=== PATIENT | female | born 1940 | race Caucasian/White ===

== ENCOUNTER → 2023-02-10 | Outpatient (CLI) | payer MEDICARE ==
[~2023-02-10] MED LIST: ACET-66 PO; ESCI20TA38 PO; LOSA25TA41 PO; METO-391 PO; MULT-1203 PO; PREVAGEN PO; SIMV-46 PO
== END | disposition home or self-care (01) ==
LOC: SHCH 10:38
PROVIDERS: ATTEND Internal Medicine Cardiovascular Disease
DX: I87.2 Venous insufficiency (chronic) (peripheral) (principal)
CPT/HCPCS: 93970

== ENCOUNTER → 2023-06-23 | Outpatient (CLI) | payer MEDICARE ==
[~2023-06-23] MED LIST changes: +ESCI-8 PO; +FURO20TA4 PO; +ROSU20TA73 PO
[2023-06-23 15:30] LABS: BASOPHILS # (AUTO) 0.05 K/uL (0.00-0.20); BASOPHILS % (AUTO) 0.6 % (0.0-5.0); EOSINOPHILS # (AUTO) 0.14 K/uL (0.00-0.70); EOSINOPHILS % (AUTO) 1.6 % (0.0-8.0); HEMATOCRIT 43.8 % (36-48); IMMATURE GRANULOCYTE ABSOLUTE 0.04 K/uL (0-1); LYMPHOCYTES # (AUTO) 1.3 K/uL (1.0-4.8); LYMPHOCYTES % (AUTO) 14.7 % (21.0-51.0); MEAN CORPUSCULAR HEMOGLOBIN 29.5 pg (27.0-33.0); MEAN CORPUSCULAR HGB CONC 31.3 g/dL (32.0-36.0); MEAN CORPUSCULAR VOLUME 94.4 fL (79-99); MONOCYTES # (AUTO) 0.6 K/uL (0.1-1.0); MONOCYTES % (AUTO) 6.7 % (3.0-13.0); NEUTROPHILS # (AUTO) 6.8 K/uL (1.8-7.7); PLATELET COUNT (AUTO) 230 K/uL (130-400); RED BLOOD CELL COUNT(AUTO) 4.64 MIL/uL (4.00-5.50); RED CELL DISTRIBUTION WIDTH 13.5 % (11.0-15.5)
[2023-06-23 15:42] LABS: INR < 0.93 (0.85-1.15); PROTHROMBIN TIME 10.6 SEC (9.6-11.6)
[2023-06-23 15:43] LABS: PARTIAL THROMBOPLASTIN TIME 26.8 SEC (26.3-35.5)
[2023-06-23 15:44] LABS: ALBUMIN 3.6 g/dL (3.5-5.0); BILIRUBIN,TOTAL 0.4 mg/dL (0.2-1.0); CREATININE 0.8 mg/dL (0.5-1.5); POTASSIUM 3.9 mmol/L (3.5-5.1); TOTAL PROTEIN, SERUM 7.1 g/dL (6.0-8.3)
== END | disposition home or self-care (01) ==
LOC: LAB 14:07
PROVIDERS: ATTEND Internal Medicine Cardiovascular Disease
DX: I87.2 Venous insufficiency (chronic) (peripheral) (principal); I87.1 Compression of vein; M79.89 Other specified soft tissue disorders
CPT/HCPCS: 36415; 80053; 85025; 85610; 85730

== ENCOUNTER 2023-06-27 12:42 | Observation (INO) | payer MEDICARE ==
[~2023-06-27] VITALS: Ht 147.3 cm; Wt 79.6 kg
[~2023-06-27 12:42] MED LIST changes: -ESCI-8 PO; -FURO20TA4 PO; -ROSU20TA73 PO
[2023-06-27] MEDS ORDERED: 0.9%NACL 1000ML 1,000 ML IV ONE (13:00)
[2023-06-27 13:25] LABS: BASOPHILS # (AUTO) 0.05 K/uL (0.00-0.20); BASOPHILS % (AUTO) 0.5 % (0.0-5.0); EOSINOPHILS # (AUTO) 0.09 K/uL (0.00-0.70); EOSINOPHILS % (AUTO) 0.9 % (0.0-8.0); HEMATOCRIT 34.5 % (36-48); IMMATURE GRANULOCYTE ABSOLUTE 0.05 K/uL (0-1); LYMPHOCYTES % (AUTO) 9.9 % (21.0-51.0); MEAN CORPUSCULAR HEMOGLOBIN 29.9 pg (27.0-33.0); MEAN CORPUSCULAR HGB CONC 32.2 g/dL (32.0-36.0); MONOCYTES # (AUTO) 0.6 K/uL (0.1-1.0); MONOCYTES % (AUTO) 5.2 % (3.0-13.0); NEUTROPHILS # (AUTO) 8.8 K/uL (1.8-7.7); PLATELET COUNT (AUTO) 182 K/uL (130-400); RED BLOOD CELL COUNT(AUTO) 3.71 MIL/uL (4.00-5.50); RED CELL DISTRIBUTION WIDTH 13.4 % (11.0-15.5); WHITE BLOOD COUNT (AUTO) 10.5 K/uL (4.8-10.8)
[2023-06-27 13:37] LABS: CREATININE 0.7 mg/dL (0.5-1.5); POTASSIUM 4.1 mmol/L (3.5-5.1)
[2023-06-27 13:51] LABS: MAGNESIUM 2.1 mg/dL (1.80-2.40); THYROID STIMULATING HORMONE 1.71 uIU/mL (0.36-3.74)
[2023-06-27] MEDS ORDERED: GLUCAGON 1MG KIT 1 MG ML IM PRN (15:00)
[2023-06-27] MEDS ORDERED: DiphenhydrAMINE HCL 50 MG/ML VIAL IV PRN (15:00)
[2023-06-27] MEDS ORDERED: POTASSIUM CHLORIDE 10% ELIXIR 20 MEQ/15 ML UDCUP PO PRN (15:00)
[2023-06-27] MEDS ORDERED: DOCUSATE SODIUM 100 MG CAP PO PRN (15:00)
[2023-06-27] MEDS ORDERED: POTASSIUM CHLORIDE 20MEQ/100ML 100 ML IV PRN ×2 (15:00)
[2023-06-27] MEDS ORDERED: LACTULOSE 20 GM/30 ML UDCUP PO PRN (15:00)
[2023-06-27] MEDS ORDERED: ACETAMINOPHEN 325 MG TAB PO PRN ×2 (15:00)
[2023-06-27] MEDS ORDERED: ALPRAZOLAM 0.5 MG TABLET PO PRN (15:00)
[2023-06-27] MEDS ORDERED: GUAIFENESIN-DM 200/20 MG 10 ML PO PRN (15:00)
[2023-06-27] MEDS ORDERED: MAGNESIUM 2GM PREMIX 50ML 50 ML IV PRN (15:00)
[2023-06-27] MEDS ORDERED: BENZOCAINE/MENTH/CETYLPYRD CL 1 EACH LOZENGE MM PRN (15:00)
[2023-06-27] MEDS ORDERED: KCL 20 MEQ ERTAB PO PRN (15:00)
[2023-06-27] MEDS ORDERED: DEXTROSE 50%-WATER 50 ML DISP.SYRIN IV PRN (15:00)
[2023-06-27] MEDS ORDERED: POLYETHYLENE GLYCOL 3350 17 GM POWD.PACK PO PRN (15:00)
[2023-06-27] MEDS ORDERED: DIPHENHYDRAMINE HCL 25 MG CAPSULE PO PRN (15:00)
[2023-06-27] MEDS ORDERED: ONDANSETRON 4MG INJ IV PRN (15:00)
[2023-06-27 15:09] LABS: INR 0.97 (0.85-1.15); PROTHROMBIN TIME 11.3 SEC (9.6-11.6)
[2023-06-27 15:10] LABS: PARTIAL THROMBOPLASTIN TIME 55.5 SEC (26.3-35.5)
[2023-06-27] MEDS ORDERED: ESCI-8 PO (15:58)
[2023-06-27] MEDS ORDERED: FURO20TA4 PO (15:58)
[2023-06-27] MEDS ORDERED: METO-391 PO (15:58)
[2023-06-27] MEDS ORDERED: ROSU20TA73 PO (15:58)
[2023-06-27] MEDS: INSULIN HUMULIN R 100 UNIT/ML 3ML SQ SCH ×2 (16:30→20:40)
[2023-06-27 20:10] VITALS: O2SAT 97
[2023-06-27 20:15] VITALS: BP 138/66; PULSE 73; RESP 18; O2SAT 98
[2023-06-27] MEDS: FAMOTIDINE 20MG VIAL IV SCH (21:24)
[2023-06-27 21:34] LABS: HEMATOCRIT 31.6 % (36-48)
[2023-06-27 23:00] VITALS: BP 130/68; PULSE 70; RESP 18
[2023-06-28] VITALS (14 sets, daily range): BP systolic 119–150; BP diastolic 51–96; PULSE 80–92; RESP 16–20; O2SAT 96–97
[2023-06-28 04:13] LABS: BASOPHILS # (AUTO) 0.04 K/uL (0.00-0.20); BASOPHILS % (AUTO) 0.6 % (0.0-5.0); EOSINOPHILS # (AUTO) 0.07 K/uL (0.00-0.70); HEMATOCRIT 31.7 % (36-48); IMMATURE GRANULOCYTE ABSOLUTE 0.02 K/uL (0-1); LYMPHOCYTES # (AUTO) 1.4 K/uL (1.0-4.8); LYMPHOCYTES % (AUTO) 19.2 % (21.0-51.0); MEAN CORPUSCULAR HEMOGLOBIN 29.6 pg (27.0-33.0); MEAN CORPUSCULAR HGB CONC 30.9 g/dL (32.0-36.0); MEAN CORPUSCULAR VOLUME 95.8 fL (79-99); MONOCYTES # (AUTO) 0.7 K/uL (0.1-1.0); NEUTROPHILS # (AUTO) 4.9 K/uL (1.8-7.7); NEUTROPHILS % (AUTO) 68.9 % (40.0-77.0); PLATELET COUNT (AUTO) 146 K/uL (130-400); RED BLOOD CELL COUNT(AUTO) 3.31 MIL/uL (4.00-5.50); RED CELL DISTRIBUTION WIDTH 13.5 % (11.0-15.5); WHITE BLOOD COUNT (AUTO) 7.1 K/uL (4.8-10.8)
[2023-06-28 04:21] LABS: ALBUMIN 2.9 g/dL (3.5-5.0); BILIRUBIN,TOTAL 0.4 mg/dL (0.2-1.0); CREATININE 0.7 mg/dL (0.5-1.5); POTASSIUM 3.8 mmol/L (3.5-5.1); TOTAL PROTEIN, SERUM 5.7 g/dL (6.0-8.3)
[2023-06-28] MEDS: INSULIN HUMULIN R 100 UNIT/ML 3ML SQ SCH ×4 (05:57→20:01)
[2023-06-28] MEDS: FAMOTIDINE 20MG VIAL IV SCH ×2 (08:17→20:02)
[2023-06-28 09:40] LABS: HEMATOCRIT 29.6 % (36-48)
[2023-06-28] MEDS ORDERED: THROMBIN-JMI 5000 UNIT/VIAL TP ONE (11:22)
[2023-06-28 14:57] LABS: HEMATOCRIT 29.8 % (36-48)
[2023-06-29 00:10] VITALS: BP 141/68; PULSE 90; RESP 20
[2023-06-29 04:00] VITALS: BP 117/86; PULSE 98; RESP 21
[2023-06-29 05:01] LABS: BASOPHILS # (AUTO) 0.04 K/uL (0.00-0.20); BASOPHILS % (AUTO) 0.6 % (0.0-5.0); EOSINOPHILS # (AUTO) 0.11 K/uL (0.00-0.70); EOSINOPHILS % (AUTO) 1.6 % (0.0-8.0); HEMATOCRIT 28.2 % (36-48); IMMATURE GRANULOCYTE ABSOLUTE 0.03 K/uL (0-1); LYMPHOCYTES # (AUTO) 1.4 K/uL (1.0-4.8); LYMPHOCYTES % (AUTO) 19.4 % (21.0-51.0); MEAN CORPUSCULAR HGB CONC 31.6 g/dL (32.0-36.0); MEAN CORPUSCULAR VOLUME 94.9 fL (79-99); MONOCYTES # (AUTO) 0.8 K/uL (0.1-1.0); MONOCYTES % (AUTO) 11.3 % (3.0-13.0); NEUTROPHILS # (AUTO) 4.7 K/uL (1.8-7.7); NEUTROPHILS % (AUTO) 66.7 % (40.0-77.0); PLATELET COUNT (AUTO) 129 K/uL (130-400); RED BLOOD CELL COUNT(AUTO) 2.97 MIL/uL (4.00-5.50); RED CELL DISTRIBUTION WIDTH 13.7 % (11.0-15.5)
[2023-06-29 05:10] LABS: HEMOGLOBIN A1C 6.1 % (4.0-6.0)
[2023-06-29 05:16] LABS: B-TYPE NATRIURETIC PEPTIDE 50 pg/mL (0-100)
[2023-06-29 05:22] LABS: ALBUMIN 2.7 g/dL (3.5-5.0); BILIRUBIN,TOTAL 0.4 mg/dL (0.2-1.0); CREATININE 0.8 mg/dL (0.5-1.5); MAGNESIUM 2.1 mg/dL (1.80-2.40); POTASSIUM 3.7 mmol/L (3.5-5.1); THYROID STIMULATING HORMONE 2.71 uIU/mL (0.36-3.74); TOTAL PROTEIN, SERUM 5.6 g/dL (6.0-8.3)
[2023-06-29] MEDS: INSULIN HUMULIN R 100 UNIT/ML 3ML SQ SCH ×2 (05:43→11:30)
[2023-06-29 07:45] VITALS: BP 143/68; PULSE 86; RESP 16
[2023-06-29] MEDS: FAMOTIDINE 20MG VIAL IV SCH (07:56)
[2023-06-29 09:00] VITALS: O2SAT 96
== END 2023-06-29 14:36 | disposition home or self-care (01) ==
LOC: EDH 12:42 → EDHIP 14:36 → 2DH 20:00
PROVIDERS: ADMIT Internal Medicine Pulmonary Disease; ATTEND Internal Medicine Pulmonary Disease
DX: I72.9 Aneurysm of unspecified site (principal); D62 Acute posthemorrhagic anemia; I11.0 Hypertensive heart disease with heart failure; I50.32 Chronic diastolic (congestive) heart failure; G47.33 Obstructive sleep apnea (adult) (pediatric); S30.1XXA Contusion of abdominal wall, initial encounter; E66.9 Obesity, unspecified; E78.00 Pure hypercholesterolemia, unspecified; F32.A Depression, unspecified; I25.10 Atherosclerotic heart disease of native coronary artery without angina pectoris; I72.8 Aneurysm of other specified arteries; M54.9 Dorsalgia, unspecified; J42 Unspecified chronic bronchitis; F41.9 Anxiety disorder, unspecified; G89.29 Other chronic pain; Z68.38 Body mass index [BMI] 38.0-38.9, adult; Z79.4 Long term (current) use of insulin; Z79.899 Other long term (current) drug therapy; Z98.890 Other specified postprocedural states; X58.XXXA Exposure to other specified factors, initial encounter; Y92.89 Other specified places as the place of occurrence of the external cause; Y93.89 Activity, other specified
CPT/HCPCS: 85014 ×3; 85018 ×3; 96374; 96361; 99285; 84443 ×2; 83735 ×2; 84484; 80048; 85025 ×3; 85610; 85730; 82948 ×6; 83605 ×2; 36415 ×3; 76882 ×2; 93005; 96376 ×2; 80053 ×2; 82140; 36002; 97161; 97116 ×2; 97530 ×4; 83036; 82550; 83880; 84145; G0378 ×46; J3490 ×5; J7030

== ENCOUNTER → 2023-10-03 | Outpatient (CLI) | payer MEDICARE ==
[~2023-10-03] MED LIST changes: +ESCI-8 PO; -ESCI20TA38 PO; +FURO20TA4 PO; +ROSU20TA73 PO
== END | disposition home or self-care (01) ==
LOC: LAB 13:51
PROVIDERS: ATTEND Internal Medicine Cardiovascular Disease
DX: R06.02 Shortness of breath (principal)
CPT/HCPCS: 36415; 83880

== ENCOUNTER → 2023-10-31 | Outpatient (CLI) | payer MEDICARE | END | disposition home or self-care (01) | LOC: SHCH 14:40 | PROVIDERS: ATTEND Internal Medicine Cardiovascular Disease | DX: I87.1 Compression of vein (principal); I87.2 Venous insufficiency (chronic) (peripheral) | CPT/HCPCS: 93970 ==

== ENCOUNTER → 2024-01-22 | Outpatient (CLI) | payer MEDICARE | END | disposition home or self-care (01) | LOC: SHCH 15:01 | PROVIDERS: ATTEND Internal Medicine Cardiovascular Disease | DX: I87.2 Venous insufficiency (chronic) (peripheral) (principal) | CPT/HCPCS: 93971 ==

== ENCOUNTER → 2024-12-23 | Outpatient (CLI) | payer MEDICARE ==
[~2024-12-23] MED LIST changes: -ROSU20TA73 PO; +ROSU20TA98 PO
== END | disposition home or self-care (01) ==
LOC: RAH 14:06
PROVIDERS: ATTEND Internal Medicine Cardiovascular Disease
DX: I07.1 Rheumatic tricuspid insufficiency (principal); R01.1 Cardiac murmur, unspecified
CPT/HCPCS: 93306

== ENCOUNTER 2025-03-09 09:57 | Emergency (ER) | payer MEDICARE ==
[~2025-03-09] VITALS: Ht 152.4 cm; Wt 77.1 kg
--- NOTE | 2025-03-09 10:07 | ERN ---
ED Note History of Present Illness Stated Complaint: FALL, BACK PAIN Chief Complaint: Mechanical Fall Time Seen by MD: 10:04 Dictation: PATIENT IS AN 84-YEAR-OLD FEMALE COMING FROM HOME WHERE SHE SUSTAINED A SLIP FROM HER BED ONTO THE FLOOR AND HIT HER POSTERIOR LEFT SHOULDER. SHE DID NOT HIT HER HEAD NO NECK PAIN NO BACK PAIN NO PELVIC PAIN. SHE STATES SHE IS NOT ON ANY BLOOD THINNERS. SHE DEMONSTRATES LIMITED RANGE OF MOTION SECONDARY TO POSTERIOR LEFT SHOULDER PAIN. NO OTHER COMPLAINTS OF VOICE AND STATES IT WAS PURELY A MECHANICAL FALL ONLY. Allergies: Coded Allergies: cephalexin (Unverified Allergy, Unknown, 10/11/22) Home Meds Reported Medications Rosuvastatin Calcium (Rosuvastatin Calcium) 20 Mg Tablet, 20 MG PO DAILY, TAB 06/27/23 Furosemide (Furosemide) 20 Mg Tablet, 20 MG PO DAILY, TAB 06/27/23 Metoprolol Succinate (Metoprolol Succinate) 50 Mg Tab.er.24h, 50 MG PO BID, TAB 06/27/23 Escitalopram Oxalate (Escitalopram Oxalate) 10 Mg Tablet, 10 MG PO DAILY, TAB 06/27/23 [Prevagen Chewable] No Conflict Check, 10 MG PO DAILY 10/12/22 Simvastatin (Simvastatin) 40 Mg Tablet, 40 MG PO HS, TAB 10/12/22 Multivitamin (Multi Vitamin Daily) 1 Each Tablet, 1 EACH PO DAILY, TAB 10/12/22 Metoprolol Succinate (Metoprolol Succinate) 50 Mg Tab.er.24h, 50 MG PO DAILY, TAB 10/12/22 Losartan Potassium (Losartan Potassium) 25 Mg Tablet, 25 MG PO DAILY, TAB 10/12/22 Acetaminophen (Tylenol) 500 Mg Tab, 1000 MG PO TIDP PRN for PAIN, TAB 10/12/22 Past Medical History Past Medical History: Arthritis, Depression, High Cholesterol, Hypertension Surgical History: Other Surgical History Other: BACK SX Family History: HTN Social History: Negative, Lives in Assisted Living, Lives alone History: Not Applicable RN Note Reviewed/Agreed w/PFSH: Yes Review of System Dictation CONSTITUTIONAL: NEGATIVE EXCEPT FOR HPI HEAD/FACE: NEGATIVE EXCEPT FOR HPI EENT: NEGATIVE EXCEPT FOR HPI RESPIRATORY: NEGATIVE EXCEPT FOR HPI GASTROINTESTINAL/ABDOMINAL: NEGATIVE EXCEPT FOR HPI GENITOURINARY: NEGATIVE EXCEPT FOR HPI MUSCULOSKELETAL: NEGATIVE EXCEPT FOR HPI LEFT POSTERIOR SHOULDER PAIN INTEGUMENTARY: NEGATIVE EXCEPT FOR HPI NEUROLOGICAL/PSYCH: NEGATIVE EXCEPT FOR HPI HEMATOLOGIC/LYMPHATIC: NEGATIVE EXCEPT FOR HPI ALL SYSTEMS NEGATIVE, EXCEPT NOTED ABOVE. 13 POINT REVIEW OF SYSTEMS ASSESSED AND ALL NEGATIVE EXCEPT FOR ABOVE. Initial Vital Sign VS Vital Signs Date Time Temp Pulse Resp B/P (MAP) Pulse Ox O2 Delivery O2 Flow Rate FiO2 03/09/25 10:02 97.7 62 17 146/56 95 Room Air 0 03/09/25 10:57 21 Physical Exam Dictation VITAL SIGNS REVIEWED GENERAL APPEARANCE: ALERT, ORIENTED X 3, MILD ACUTE DISTRESS, WELL DEVELOPED, NOURISHED. HEAD AND FACE: NON-TRAUMATIC. NO PAIN. EYES: PERRL, PINK CONJUNCTIVAS, EYELID NO TRAUMA, ANTERIOR CHAMBER WITH ARCUS SENILIS. EARS: PINNAS INTACT AND NO SIGNS OF TRAUMA OR ERYTHEMA EAR CANALS CLEAR AND NO DISCHARGE TM NO ERYTHEMA NO HEMOTYMPANUM NOSE: NO DISCHARGE, NO BLEEDING. OROPHARYNX: MOUTH NORMAL, TONGUE PINK, PHARYNX CLEAR,NO ERYTHEMA, TONSILS NO EXUDATES, NO ABSCESSES NOTED, MUCOUS MEMBRANE MOIST NECK: SUPPLE, NON-TENDER, NO THYROMEGALY, NO MASSES, NO JVD, NO BRUITS BREAST:DEFERRED CHEST:NO TENDERNESS, NO CREPITUS, NO PARADOXICAL MOVEMENT, NO RETRACTIONS LUNGS:CLEAR, WELL-VENTILATED, SYMMETRIC, NO RALES, NO WHEEZING, NO RHONCHI, NO STRIDOR, GOOD BREATH SOUNDS BILATERALLY HEART: REGULAR RATE, REGULAR RHYTHM, NO MURMUR, NO GALLOPS VASCULAR: NO PERIPHERAL EDEMA, ABDOMEN: SOFT, POSITIVE BOWEL SOUNDS, NONDISTENDED, NO GUARDING, NONTENDER, NO REBOUND, NO MASSES NO HEPATOMEGALY, NO SPLENOMEGALY, NO WILEY'S SIGN, NO HERNIAS. RECTAL: DEFERRED GENITAL: DEFERRED NEUROLOGICAL: NORMAL SPEECH, MOTOR FUNCTION INTACT, SENSORY FUNCTION INTACT MUSCULOSKELETAL: NECK NONTENDER, FULL RANGE OF MOTION, BACK NONTENDER, FULL RANGE OF MOTION, NO MIDLINE SPINE PAIN OR NECK PAIN EXTREMITIES: LEFT POSTERIOR SHOULDER TENDERNESS WITH PALPATION. PHARMACY. NEUROVASCULAR CMS INTACT. SKIN: COLOR PINK, DRY, NO TURGOR, NO RASH, NO LACERATIONS, NO ABRASIONS, NO CONTUSIONS. LYMPHATIC: DEFERRED Results (Laboratory/Radiology) Laboratory/Radiology LEFT SHOULDER X-RAY NEGATIVE EXCEPT FOR DEGENERATIVE CHANGES Labs Reviewed?: Yes ED Course ED Course Orders Procedure Category Date Status Time Shoulder Comp 2+Vws Lt RAD 03/09/25 Taken 10:05 Acetaminophen 500mg PHA 03/09/25 Complete Tab (Tylenol 500mg T 10:30 Current Medications Medications (Trade) Dose Ordered Sig/[place] Route PRN Reason Start Time Stop Time Status Last Admin Dose Admin Acetaminophen (TYLenol 500MG TAB) 1,000 mg ONCE ONCE PO 03/09/25 10:30 03/09/25 10:31 DC Vital Signs Date Time Temp Pulse Resp B/P (MAP) Pulse Ox O2 Delivery O2 Flow Rate FiO2 03/09/25 10:57 98.1 69 16 141/66 100 Room Air* 0 21 03/09/25 10:02 97.7 62 17 146/56 95 Room Air 0 1115/PATIENT DISCHARGED HOME WITH FALL AND LEFT SHOULDER CONTUSION. NO OTHER COMPLAINTS OF VOICE HEMODYNAMICALLY STABLE Medical Decision Making MDM MEDICAL DECISION-MAKING BASED ON X-RAY LEFT SHOULDER ONLY. DEGENERATIVE CHANGES ONLY NO OTHER COMPLAINTS OF VOICE NO PELVIC PAIN NO HIP PAIN NO MIDLINE SPINE PAIN. DX & DISP Disposition: Discharge Departure Impression: Primary Impression: Contusion of left shoulder, initial encounter Additional Impression: Fall Condition: Stable Additional Instructions: FOLLOW-UP WITH PRIMARY CARE PROVIDER IN 1 TO 2 DAYS. TAKE MEDICATIONS DIRECTED HERE IN THE EMERGENCY ROOM. OKAY TO CONTINUE HOME MEDICATIONS UNLESS OTHERWISE DISCUSSED DURING YOUR VISIT IN THE EMERGENCY ROOM TODAY. RETURN TO YOUR NEAREST EMERGENCY ROOM IF SYMPTOMS WORSEN OR IF THERE IS NO IMPROVEMENT. CALL 911 IF YOU NEED IMMEDIATE ASSISTANCE. TAKE TYLENOL OR MOTRIN [id number] NEEDED AND IF NO CONTRAINDICATIONS ARE PRESENT. INCREASE ORAL HYDRATION. A WOUND CULTURE OR URINE CULTURE WAS ORDERED HERE IN THE EMERGENCY ROOM DEPARTMENT PLEASE FOLLOW-UP WITH PRIMARY CARE PROVIDER AND ADVISE THEM TO GET REPEAT PORTS FROM OUR FACILITY. IF YOU HAD ANY CHALO WRAP/SPLINTS THAT WERE APPLIED HERE, PLEASE DO NOT REMOVE THEM UNTIL YOU SEE YOUR PRIMARY CARE OR SPECIALTY. SUGGEST TYLENOL ARTHRITIS 650 MG/[id number] ONE EVERY 8 HOURS . COOL COMPRESSES TO PAIN THREE TO 4 TIMES A DAY AND SEE YOUR PRIMARY CARE DOCTOR FOR FOLLOW UP. Referrals: SUMMER OLEA MD (PCP) Time of Disposition: 11:16 I have reviewed the case, and I agree with, Diagnosis and Plan JENNY HERNADEZ NP Mar 09, 2025 10:07
--- NOTE | 2025-03-09 11:35 | HMCIMG ---
EXAM: CR right Shoulder, 2 View. CLINICAL HISTORY: POSTERIOR SHOULDER PAIN STATUS POST SLIP FALL. COMPARISON: None provided. FINDINGS: BONES: No acute fracture or aggressive appearing osseous lesion. JOINTS: No dislocation. Mild acromioclavicular and glenohumeral joint osteoarthritis. Heterotopic calcification within the rotator interval may reflect rotator cuff tendon pathology. SOFT TISSUES: The soft tissues are unremarkable. IMPRESSION: 1. No acute findings. 2. Calcification in the rotator interval, may reflect chronic rotator cuff tendon pathology. 3. Mild acromioclavicular and glenohumeral joint osteoarthritis. /[place]
[2025-03-09] MEDS: acetaMINOPHEN 500 MG TABLET PO ONE (11:59)
--- NOTE | 2025-03-09 12:30 | NUR ---
called [facility] and PROVIDED REPORT TO BHAKTI FOR DC RETURN TO FACILITY CALLED [facility] AT THIS TIME FOR TRANSPO NO FACILITY TRANSPO AVAILABLE TODAY
--- NOTE | 2025-03-09 13:16 | NUR ---
PENDING EMS ARRIVAL
[2025-03-09 13:34] VITALS: BP 140/68; PULSE 70; RESP 16; TEMP 98.1; O2SAT 100
== END 2025-03-09 13:48 ==
LOC: EDH 09:57
DX: S40.012A Contusion of left shoulder, initial encounter (principal); E78.00 Pure hypercholesterolemia, unspecified; F32.A Depression, unspecified; I10 Essential (primary) hypertension; M19.90 Unspecified osteoarthritis, unspecified site; Z79.899 Other long term (current) drug therapy; Z88.1 Allergy status to other antibiotic agents; W18.09XA Striking against other object with subsequent fall, initial encounter; Y93.89 Activity, other specified; Y92.89 Other specified places as the place of occurrence of the external cause; Y99.8 Other external cause status
CPT/HCPCS: 73030; 99283